=== PATIENT | female | born 1995 | race Caucasian/White ===

== ENCOUNTER → 2024-01-06 16:41 | Outpatient (REF) | payer OTHER, SELFPAY | LOC: HWRAD 16:41 | PROVIDERS: ATTENDING PHYSICIAN Nurse Practitioner Adult Health | DX: R50.9 Fever, unspecified (principal); R06.89 Other abnormalities of breathing | CPT/HCPCS: 71046 ==

== ENCOUNTER 2024-01-07 04:12 | Emergency (ER) | payer OTHER, SELFPAY ==
[2024-01-07 04:14] VITALS: BP 136/86
--- NOTE | 2024-01-07 04:44 | ED.GENMED ---
History of Present Illness
<Mila Renner MD, Resident - Last Filed: 01/07/24 07:08>
General
Chief Complaint: Fever
Time Seen by Provider: 01/07/24 04:20
History of Present Illness
History of Present Illness:
The patient is a 28 year old female who presented to ER complaining from pain on all over her body and especially on her flank. Reports she has more pain on her right side flank area. States, she started to feel pain on her all body 3 days ago and
her fever was 103.8 at that time. She tried to manage her fever with acetaminophen and ibuprofen at home, but she could not. Her last Tylenol taking was 3.00 pm( 2pills of 500 mg ). She was seen by her PCP yesterday and got a chest X ray. She was
given Mucinex by her PCP. After this visit, she noticed her urine color was orange. This morning she woke up at 3.00 am with pain again and she started to feel her pain mostly on her both flank. The patient denies burning while urinating, denies
frequent urinating. She feels uncomfortable while urinating. She has a PMH of a few UTI when she was a teenager.
PMH: None
PSH:2 C sections
Family Hx: Elder sister had Kidney infection at 21 yo
If applicable-neuro sx onset
Date of onset of symptoms: 01/07/24
Phy Exam
<Mila Renner MD, Resident - Last Filed: 01/07/24 07:08>
General Physical Exam
General Presentation: no apparent distress
General age: appears stated age
General Skin: warm
General Habitus: normal
General Mental: alert
General Hydration: appears well hydrated
Cardiovascular Exam
Cardiovascular Exam: regular rate/rhythm and no edema
Pulmonary Exam
Pulmonary Exam: lungs clear, no respiratory distress and no crackles
Gastrointestinal Exam
Gastrointestinal Exam: soft and cva tenderness (bilateral more on the right side )
Course
<Mila Renner MD, Resident - Last Filed: 01/07/24 07:08>
Orders/Labs/Results
Orders:
Orders
01/07/24 04:45
Test Result ONCE
01/07/24 04:49
CMV IgM Antibody [S] Urgent
Comment: ADD ON
Complete Blood Count/With Diff Urgent
Comprehensive Metabolic Panel Urgent
Briseida-Lewis Virus Ab Panel I [S] Urgent
Comment: ADD ON
HCG, Serum Qualitative Screen Urgent
IgM Urgent
Comment: ADD ON
Lactic Acid Urgent
Monotest Urgent
Comment: ADD ON
Urinalysis Reflex To Culture Urgent
Date Specimen was Collected: 01/07/24
Time Specimen was Collected: 04:45
Urine Microscopic Reflex Cult Urgent
Urine Culture Urgent
JAYESH Source: U
Specimen Description:
Date Specimen was Collected: 01/07/24
Time Specimen was Collected: 04:45
01/07/24 05:38
Add On- LAB Urgent
Tests Added?: monospot
01/07/24 05:39
US Abdomen Complete/Upper Urgent
Comment:
Reason For Exam: acute fever, elevated LFT's
01/07/24 06:35
Add On- LAB Urgent
Tests Added?: CMV IgG, IgM antibodies; Briseida lewis antibody panel
01/07/24 06:58
Ibuprofen [Motrin] 600 mg PO NOW STA
Abnormal Lab Results
01/07/24
04:49
WBC 14.9 H 10^3/uL
(4.8-10.8)
RBC 3.97 L 10^6/uL
(4.20-5.40)
Hgb 11.8 L g/dL
(12.0-16.0)
Hct 34.4 L %
(37.0-47.0)
Abs Immat Gran (auto) 0.1 H 10^3/uL
(0-0.05)
Absolute Neuts (auto) 12.5 H 10^3/uL
(1.4-6.5)
Absolute Lymphs (auto) 0.8 L 10^3/uL
(1.2-3.4)
Absolute Monos (auto) 1.5 H 10^3/uL
(0.1-0.6)
Immature Gran % 0.6 H %
(0-0.5)
Neutrophils % 83.8 H %
(42.2-75.2)
Lymphocytes % 5.2 L %
(20.5-51.1)
Monocytes % 10.2 H %
(1.7-9.3)
Sodium 134 L mmol/L
(135-145)
Glucose 122 H mg/dl
(70-99)
AST 38 H U/L
(14-36)
ALT 104 H U/L
(0-35)
Alkaline Phosphatase 189 H U/L
(38-126)
Total Protein 6.1 L g/dl
(6.3-8.2)
Urine Ketones 1+ A
(Negative)
Ur Occult Blood Reflex 1+ A
(Negative)
Urine Bilirubin 1+ A
(Negative)
Leukocyte Esterase Rfl 1+ A
(Negative)
Urine WBC (Reflex) 16-20 A /HPF
(0-5)
Urine Bacteria (Reflex) Few A
(Negative)
Urine Albumin (Reflex) 1+ A
(Neg - Trace)
EBV Capsid Ag IgG Ab >750.0 H U/mL
(0.0-21.9)
EBV Nuclear Ag Ab Titer 179.0 H U/mL
(0.0-21.9)
01/07/24 04:49
01/07/24 04:49
Vital Signs
Initial and Last Documented VS:
Initial Vital Signs
Temp Pulse Resp BP Pulse Ox
99.6 F 130 24 136/86 95
01/07/24 04:14 01/07/24 04:14 01/07/24 04:14 01/07/24 04:14 01/07/24 04:14
Last Documented Vital Signs
Temp Pulse Resp BP Pulse Ox
98.6 F 111 18 109/70 97
01/07/24 09:33 01/07/24 09:33 01/07/24 09:33 01/07/24 09:33 01/07/24 09:33
<Catherine Sue, DO - Last Filed: 01/09/24 06:07>
Orders/Labs/Results
Orders:
Orders
01/07/24 04:45
Test Result ONCE
01/07/24 04:49
CMV IgM Antibody [S] Urgent
Comment: ADD ON
Complete Blood Count/With Diff Urgent
Comprehensive Metabolic Panel Urgent
Briseida-Lewis Virus Ab Panel I [S] Urgent
Comment: ADD ON
HCG, Serum Qualitative Screen Urgent
IgM Urgent
Comment: ADD ON
Lactic Acid Urgent
Monotest Urgent
Comment: ADD ON
Urinalysis Reflex To Culture Urgent
Date Specimen was Collected: 01/07/24
Time Specimen was Collected: 04:45
Urine Microscopic Reflex Cult Urgent
Urine Culture Urgent
JAYESH Source: U
Specimen Description:
Date Specimen was Collected: 01/07/24
Time Specimen was Collected: 04:45
01/07/24 05:38
Add On- LAB Urgent
Tests Added?: monospot
01/07/24 05:39
US Abdomen Complete/Upper Urgent
Comment:
Reason For Exam: acute fever, elevated LFT's
01/07/24 06:35
Add On- LAB Urgent
Tests Added?: CMV IgG, IgM antibodies; Briseida lewis antibody panel
01/07/24 06:58
Ibuprofen [Motrin] 600 mg PO NOW STA
Abnormal Lab Results
01/07/24
04:49
WBC 14.9 H 10^3/uL
(4.8-10.8)
RBC 3.97 L 10^6/uL
(4.20-5.40)
Hgb 11.8 L g/dL
(12.0-16.0)
Hct 34.4 L %
(37.0-47.0)
Abs Immat Gran (auto) 0.1 H 10^3/uL
(0-0.05)
Absolute Neuts (auto) 12.5 H 10^3/uL
(1.4-6.5)
Absolute Lymphs (auto) 0.8 L 10^3/uL
(1.2-3.4)
Absolute Monos (auto) 1.5 H 10^3/uL
(0.1-0.6)
Immature Gran % 0.6 H %
(0-0.5)
Neutrophils % 83.8 H %
(42.2-75.2)
Lymphocytes % 5.2 L %
(20.5-51.1)
Monocytes % 10.2 H %
(1.7-9.3)
Sodium 134 L mmol/L
(135-145)
Glucose 122 H mg/dl
(70-99)
AST 38 H U/L
(14-36)
ALT 104 H U/L
(0-35)
Alkaline Phosphatase 189 H U/L
(38-126)
Total Protein 6.1 L g/dl
(6.3-8.2)
Urine Ketones 1+ A
(Negative)
Ur Occult Blood Reflex 1+ A
(Negative)
Urine Bilirubin 1+ A
(Negative)
Leukocyte Esterase Rfl 1+ A
(Negative)
Urine WBC (Reflex) 16-20 A /HPF
(0-5)
Urine Bacteria (Reflex) Few A
(Negative)
Urine Albumin (Reflex) 1+ A
(Neg - Trace)
EBV Capsid Ag IgG Ab >750.0 H U/mL
(0.0-21.9)
EBV Nuclear Ag Ab Titer 179.0 H U/mL
(0.0-21.9)
01/07/24 04:49
01/07/24 04:49
Vital Signs
Temp: 98.9 F
Initial and Last Documented VS:
Initial Vital Signs
Temp Pulse Resp BP Pulse Ox
99.6 F 130 24 136/86 95
01/07/24 04:14 01/07/24 04:14 01/07/24 04:14 01/07/24 04:14 01/07/24 04:14
Last Documented Vital Signs
Temp Pulse Resp BP Pulse Ox
98.6 F 111 18 109/70 97
01/07/24 09:33 01/07/24 09:33 01/07/24 09:33 01/07/24 09:33 01/07/24 09:33
<Karis Jones PA-C - Last Filed: 01/10/24 07:06>
Orders/Labs/Results
Orders:
Orders
01/07/24 04:45
Test Result ONCE
01/07/24 04:49
CMV IgM Antibody [S] Urgent
Comment: ADD ON
Complete Blood Count/With Diff Urgent
Comprehensive Metabolic Panel Urgent
Briseida-Lewis Virus Ab Panel I [S] Urgent
Comment: ADD ON
HCG, Serum Qualitative Screen Urgent
IgM Urgent
Comment: ADD ON
Lactic Acid Urgent
Monotest Urgent
Comment: ADD ON
Urinalysis Reflex To Culture Urgent
Date Specimen was Collected: 01/07/24
Time Specimen was Collected: 04:45
Urine Microscopic Reflex Cult Urgent
Urine Culture Urgent
JAYESH Source: U
Specimen Description:
Date Specimen was Collected: 01/07/24
Time Specimen was Collected: 04:45
01/07/24 05:38
Add On- LAB Urgent
Tests Added?: monospot
01/07/24 05:39
US Abdomen Complete/Upper Urgent
Comment:
Reason For Exam: acute fever, elevated LFT's
01/07/24 06:35
Add On- LAB Urgent
Tests Added?: CMV IgG, IgM antibodies; Briseida lewis antibody panel
01/07/24 06:58
Ibuprofen [Motrin] 600 mg PO NOW STA
Abnormal Lab Results
01/07/24
04:49
WBC 14.9 H 10^3/uL
(4.8-10.8)
RBC 3.97 L 10^6/uL
(4.20-5.40)
Hgb 11.8 L g/dL
(12.0-16.0)
Hct 34.4 L %
(37.0-47.0)
Abs Immat Gran (auto) 0.1 H 10^3/uL
(0-0.05)
Absolute Neuts (auto) 12.5 H 10^3/uL
(1.4-6.5)
Absolute Lymphs (auto) 0.8 L 10^3/uL
(1.2-3.4)
Absolute Monos (auto) 1.5 H 10^3/uL
(0.1-0.6)
Immature Gran % 0.6 H %
(0-0.5)
Neutrophils % 83.8 H %
(42.2-75.2)
Lymphocytes % 5.2 L %
(20.5-51.1)
Monocytes % 10.2 H %
(1.7-9.3)
Sodium 134 L mmol/L
(135-145)
Glucose 122 H mg/dl
(70-99)
AST 38 H U/L
(14-36)
ALT 104 H U/L
(0-35)
Alkaline Phosphatase 189 H U/L
(38-126)
Total Protein 6.1 L g/dl
(6.3-8.2)
Urine Ketones 1+ A
(Negative)
Ur Occult Blood Reflex 1+ A
(Negative)
Urine Bilirubin 1+ A
(Negative)
Leukocyte Esterase Rfl 1+ A
(Negative)
Urine WBC (Reflex) 16-20 A /HPF
(0-5)
Urine Bacteria (Reflex) Few A
(Negative)
Urine Albumin (Reflex) 1+ A
(Neg - Trace)
EBV Capsid Ag IgG Ab >750.0 H U/mL
(0.0-21.9)
EBV Nuclear Ag Ab Titer 179.0 H U/mL
(0.0-21.9)
01/07/24 04:49
01/07/24 04:49
Vital Signs
Initial and Last Documented VS:
Initial Vital Signs
Temp Pulse Resp BP Pulse Ox
99.6 F 130 24 136/86 95
01/07/24 04:14 01/07/24 04:14 01/07/24 04:14 01/07/24 04:14 01/07/24 04:14
Last Documented Vital Signs
Temp Pulse Resp BP Pulse Ox
98.6 F 111 18 109/70 97
01/07/24 09:33 01/07/24 09:33 01/07/24 09:33 01/07/24 09:33 01/07/24 09:33
<Mila Renner MD, Resident - Last Filed: 01/07/24 07:08>
MDM/Problems Addressed
Differential Diagnosis Includes:
Kidney stone/ infection, UTI , systemic infection, Mononucleosis, IBS
MDM/Problems Addressed:
CBC, CMP and urinalysis was ordered. CBC showed elevated WBC. CMP showed elevated LFTs. Urinalysis showed a possible UTI.
Abdominal US and Monotest was ordered.Monotest test resulted negative.
The symptoms and elevated LFT levels are compliant with a viral infection. Some viral lab studies were ordered and the patient was recommended to be followed up by her PCP.
<Catherine Sue DO - Last Filed: 01/09/24 06:07>
*Radiology
Radiology exam reviewed: radiology read reviewed
*Pulse Oximetry
Patient hypoxic: no
*Critical Care Note
Total Time (30-74mins, 75-104mins- exclusive of procedures): Not Applicable
<Karis Jones PA-C - Last Filed: 01/10/24 07:06>
Update Note
Update Note:
Urine culture growing >100,000 colonies of E.coli. I called patient on 01/09/24 to discuss results. Patient is currently admitted at [facility] for pyelonephritis and is receiving IV abx.
ED Attending Note
<Mila Renner MD, Resident - Last Filed: 01/07/24 07:08>
-
Portions of this chart may have been created with voice recognition software.� Occasional wrong word or��sound alike� substitutions may have occurred due to the inherent limitations of voice recognition software.
<Catherine Sue DO - Last Filed: 01/09/24 06:07>
ED Attending Note
Patient seen and examined by attending physician: Yes
I performed the substantive portion of visit, reviewed & personally made and approve the management plan that is documented in note by myself or RAMONITA.: Yes
ED Attending Note:
This is a 28-year-old female with no significant past medical history of complaints of 2-1/2-day history of acute febrile illness with temperature 103-104 via tympanic thermometer. Fever accompanied with generalized myalgias, fatigue but no cough
no sore throat, no congestion, no headache, no abdominal pain, no dysuria no urgency nor hematuria. She has had mild low backache but she denies flank pain.
Denies risk of , last normal menstrual period ended 4 days ago.
She has been taking Tylenol alternating with ibuprofen for fever with good results.
She was evaluated by PCP yesterday and there was concern for mildly diminished breath sounds right base and thus was sent for chest x-ray that was unremarkable.
Home COVID testing x 2 has been negative. Influenza testing in office yesterday was negative.
This morning she awoke with generalized aches, rapid heartbeat and fever again has spiked to 104. She took Tylenol prior to arrival.
She has had mildly decreased appetite but has been attempting to keep up with her liquids. No nausea nor vomiting, no diarrhea or constipation.
No recent travel.
No close contacts with similar symptoms.
No rash. No known insect bites.
No history of similar episodes in the past.
Tonight however she has noticed that her urine appears somewhat darker in color and she has had mild urinary frequency tonight and through the morning.
GENERAL: 28-year-old female appears her stated age, bright and alert, pleasant, appears in no acute distress. Afebrile.
EYE: pupils equal and reactive. anicteric
NECK: Supple, nontender, no meningismus, no significant adenopathy.
ENT: posterior pharynx is clear, oral mucosa is moist. TM clear b/l, nares patent.
CARDIAC: Regular rate and rhythm. no murmur. No rub.
LUNGS: Clear breath sounds bilaterally, no acute respiratory distress, no wheezes/rales/rhonchi
ABDOMEN: Soft, nondistended, without focal tenderness, no r/g, no cvat. normoactive BS.
NEUROLOGICAL: Alert and oriented x3, no focal neuro deficits. Gait is godinez and steady.
SKIN: Warm and dry, normal color, skin intact. No rash.
MUSCULOSKELETAL: No C/C/E. peripheral pulses are full and equal b/l. No palpable tenderness.
PSYCH: Normal and appropriate interaction.
Acute febrile illness. Concern for UTI, acute viral syndrome.
No URI symptoms and chest x-ray yesterday was negative. Home COVID testing x 2 was been negative. Influenza testing negative.
Will check labs, lactic acid, urinalysis with urine culture.
Will continue to encourage oral fluids.
01/07/2024 0659 AM
Patient continues to appear well.
Oral temperature 98.9 �F.
Labs show mildly elevated white blood cell count of 14.9, mild left shift. Mildly elevated monocytes. Chemistries show mildly elevated LFTs with normal bilirubin, normal lactic acid.
Urinalysis shows 16-20 WBCs, few bacteria as well as 11-15 squamous epithelial cells. Nitrite negative. Patient has had mild urinary frequency but has been attempting to keep up with oral fluids well, she continues to have no dysuria, no urgency,
no flank pain. I am not convinced for UTI.
Due to mildly elevated LFTs, associated with fever must consider Briseida-Lewis viral infection, CMV. Monospot is negative.
No GI symptoms, no risk factors for STD, viral hepatitis.
Awaiting abdominal ultrasound results.
FUO I suspect is viral in nature and again overall patient is well in appearance.
Recommend continuing Tylenol versus ibuprofen, staying well-hydrated. I have added Briseida-Lewis antibody panel as well as CMV antibody panel.
Prompt follow-up with PCP.
01/09/2024 01:00 AM
Urine culture returned positive for greater than 100,000 colony count of E. coli.
Due to report of high fever, generalized aches, must consider pyelonephritis thus a prescription for 1 week course of Augmentin has been sent to patient's [facility] on file.
Will plan to call the patient later this morning to update culture results and plan of care.
Discharge Plan
Departure
Patient Disposition: Home (Routine Discharge)
Date of Disposition: 01/07/24
Time of Disposition: 07:02
Patient with high blood pressure during this ER visit?: No
Condition: Good
Discharge Problem:
Acute febrile illness, LFT elevation
Instructions: Fever, Adult (DC), Viral Syndrome (DC)
Prescriptions:
New
amoxicillin-pot clavulanate 875-125 mg tablet
1 tab PO BID Qty: 14 0RF
No Action
prenat.vits,nisha,[id number] [ Formula] 1 TAB tablet
1 tab PO DAILY
acetaminophen 325 MG tablet
650 mg PO Q4HPRN PRN (Reason: mild pain) 0RF
ibuprofen 600 MG tablet
600 mg PO Q4HPRN PRN (Reason: cramps) 0RF
Referrals:
Yolie Gao CRNP [Family Provider] - Call in 1-3 days for appt
Interventions
Interventions:
*Risk Screen - Suicide Last Done: 01/07/24 04:14
*General Assessment Last Done: 01/07/24 04:53
*Neglect/Abuse Screening Last Done: 01/07/24 04:14
*ED COVID-19 Vaccine History Last Done: 01/07/24 09:33
*Nursing Disposition Last Done: 01/07/24 09:33
ED- Neurological Assessment Last Done: 01/07/24 04:53
ED-Skin Assessment Last Done: 01/07/24 04:53
Discharge Date and Time
Discharge Date/Time: 01/07/24 09:36
Print Language: VIETNAMESE
[2024-01-07 04:53] VITALS: BMI 28.3
[2024-01-07 04:59] LABS: % Basophils 0.1 % (0-2); % Eosinophils 0.1 % (0-6); % Immature Granulocytes 0.6 % (0-0.5); % Lymphocytes 5.2 % (20.5-51.1); % Monocytes 10.2 % (1.7-9.3); % Neutrophils 83.8 % (42.2-75.2); Absolute Immature Granulocytes 0.1 10^3/uL (0-0.05); Absolute Lymphocytes 0.8 10^3/uL (1.2-3.4); Absolute Monocytes 1.5 10^3/uL (0.1-0.6); Absolute Neutrophils 12.5 10^3/uL (1.4-6.5); Hematocrit 34.4 % (37.0-47.0); Hemoglobin 11.8 g/dL (12.0-16.0); Mean Corp Hgb Conc. 34.3 g/dL (33.0-37.0); Mean Corpuscular Hgb 29.7 pg (27.0-31.0); Mean Corpuscular Volume 86.6 fL (81.0-99.0); Mean Platelet Volume 9.1 fL (7.4-10.4); Nucleated Red Blood Cells % 0 %; Platelet Count 170 10^3/uL (130-400); Red Blood Cell Count 3.97 10^6/uL (4.20-5.40); Red Cell Dist. Width 13.6 % (11.5-14.5); White Blood Cell Count 14.9 10^3/uL (4.8-10.8)
[2024-01-07 05:00] LABS: Urine Albumin 1+ (Neg - Trace); Urine Bilirubin 1+ (Negative); Urine Character Clear (Clear); Urine Color Yellow; Urine Glucose Negative (Negative); Urine Ketone 1+ (Negative); Urine Leukocyte 1+ (Negative); Urine Nitrite Negative (Negative); Urine Occult Blood 1+ (Negative); Urine Specific Gravity 1.015 (<1.030); Urine Urobilinogen 1+ (Neg - 1+)
[2024-01-07 05:21] LABS: Lactic Acid 0.8 mmol/L (0.7-2.0)
[2024-01-07 05:24] LABS: ALT (SGPT) 104 U/L (0-35); AST (SGOT) 38 U/L (14-36); Albumin 3.6 g/dl (3.5-5.0); Alkaline Phosphatase 189 U/L (38-126); Blood Urea Nitrogen 7 mg/dl (7-17); Calcium 8.9 mg/dl (8.4-10.2); Carbon Dioxide 23 mmol/L (22-30); Chloride 106 mmol/L (98-107); Estimated Creatinine Clearance 81 ml/min; Glucose 122 mg/dl (70-99); Potassium 4.3 mmol/L (3.5-5.1); Sodium 134 mmol/L (135-145); Total Bilirubin 0.7 mg/dl (0.2-1.3); Total Protein 6.1 g/dl (6.3-8.2); eGFR > 60.00
[2024-01-07 05:26] LABS: HCG, Serum Qualitative Screen Negative
[2024-01-07 05:33] LABS: Urine Bacteria Few (Negative); Urine Red Blood Cell 0-2 /HPF (0-2); Urine White Cell 16-20 /HPF (0-5)
[2024-01-07 06:20] LABS: Monotest Negative (Negative)
[2024-01-07] MEDS: MOTRIN 600 MG PO (07:24)
[2024-01-07 09:21] VITALS: BP 109/70
[2024-01-07 09:33] VITALS: BP 109/70
[2024-01-08 22:49] LABS: IgM 117 mg/dl (40-230)
[2024-01-10 01:57] LABS: EBV-EA (D) Ab IgG <5.0 U/mL (0.0-10.9); EBV-VCA IgG Antibodies >750.0 U/mL (0.0-21.9); EBV-VCA IgM Antibodies <10.0 U/mL (0.0-43.9)
[2024-01-10 02:22] LABS: CMV IgM Antibody <8.0 AU/mL (<=29.9)
== END 2024-01-07 09:36 | disposition home or self-care (01) ==
LOC: EMR 04:12
PROVIDERS: Student in an Organized Health Care Education/Training Program; EMERGENCY PHYSICIAN Emergency Medicine; FAMILY PHYSICIAN Nurse Practitioner Adult Health
DX: R50.9 Fever, unspecified (principal); R79.89 Other specified abnormal findings of blood chemistry; Z87.440 Personal history of urinary (tract) infections
CPT/HCPCS: 99284; 76700; 80053; 81003; 81015; 82784; 83605; 84703; 85025; 86308; 86645; 86663; 86664; 86665; 87086; 87088; 87186

== ENCOUNTER → 2025-03-04 06:30 | Outpatient (REF) | payer BC, SELFPAY | LOC: HWRAD 06:30 | PROVIDERS: ATTENDING PHYSICIAN Nurse Practitioner Adult Health | DX: M25.562 Pain in left knee (principal) | CPT/HCPCS: 73564 ==